=== PATIENT | male | born 1975 | race Asian ===

== ENCOUNTER 2019-10-20 17:04 | Emergency (ER) | payer OTHER ==
[~2019-10-20] VITALS: Ht 182.9 cm; Wt 86.2 kg
[2019-10-20 17:04] VITALS: TEMP 97.9
[2019-10-20 18:45] VITALS: BP 121/79
== END 2019-10-20 18:45 | disposition home or self-care (01) ==
LOC: ED 17:10
DX: S40.012A Contusion of left shoulder, initial encounter (principal); S43.402A Unspecified sprain of left shoulder joint, initial encounter; W06.XXXA Fall from bed, initial encounter; Y92.149 Unspecified place in prison as the place of occurrence of the external cause
CPT/HCPCS: 96372; 99283; J1885